=== PATIENT | female | born 1940 | race Asian ===

== ENCOUNTER 2019-04-21 10:13 | Emergency (ER) | payer OTHER, MEDICAID ==
[~2019-04-21] VITALS: Ht 152.4 cm; Wt 48.5 kg
[2019-04-21 10:20] VITALS: BP 150/99
--- NOTE | 2019-04-21 10:20 | NUR ---
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 A/O X 4, DENIES ANY COMPLAINT EXCEPT SHE WAS COLD SINCE HER SWIM SUIT WAS WET.DR HERNANDEZ ALLOWED TO EAT THE FOOD SHE BROUGHT WITH HER,WRAPPED WITH WARM BLANKETS.
[2019-04-21 10:54] LABS: BASOPHILS % (AUTO) 0.7 % (0.0-2.0); HEMATOCRIT 40 % (33-45); HEMOGLOBIN 13.7 g/dL (11.5-14.8); LYMPHOCYTES # (AUTO) 1.8 /CMM (0.8-4.8); LYMPHOCYTES % (AUTO) 29.1 % (20.0-44.0); MEAN CORPUSCULAR HGB CONC 34 g/dl (31.0-36.0); MEAN CORPUSCULAR VOLUME 95 fL (82-100); MONOCYTES # (AUTO) 0.4 /CMM (0.1-1.30); MONOCYTES % (AUTO) 6.4 % (2.0-12.0); NEUTROPHILS # (AUTO) 3.8 /CMM (1.8-8.9); NEUTROPHILS % (AUTO) 62.8 % (43.0-81.0); PLATELET COUNT (AUTO) 214 /CMM (150-450); RED BLOOD CELL COUNT(AUTO) 4.24 MIL/uL (4.0-5.2)
[2019-04-21 11:01] LABS: CALCIUM, SERUM 9.1 mg/dL (8.5-10.1); CARBON DIOXIDE 30 mmol/L (21-32); CHLORIDE 104 mmol/L (98-107); CREATININE 0.7 mg/dL (0.6-1.3); GLUCOSE 111 mg/dL (74-106); POTASSIUM 4.5 mmol/L (3.5-5.1); SODIUM SERUM 140 mmol/L (136-145); UREA NITROGEN, BLOOD 23 mg/dL (7-18)
--- NOTE | 2019-04-21 11:40 | NUR ---
PROVIDED PT WITH DRY CLOTHES AND TAXI VOUCHER. Patient discharged to home in stable condition. Written and verbal after care instructions given. Patient verbalizes understanding of instruction.
--- NOTE | 2019-04-21 11:48 | NUR ---
Fam chaves in [facility] - 04/21/19 at 1149 by FANY ORTHO ONEMILY, ERA MAC, PAGESue AGAIN
== END 2019-04-21 11:59 | disposition home or self-care (01) ==
LOC: ER 10:15
DX: T68.XXXA Hypothermia, initial encounter (principal); Z60.2 Problems related to living alone
CPT/HCPCS: 36415; 80048-TC; 85025-TC